=== PATIENT | female | born 1980 | race Caucasian/White ===

== ENCOUNTER 2021-05-02 07:21 | Outpatient (REF) | payer OTHER, SELFPAY ==
--- NOTE | ~2021-05-02 | XR_ITS ---
EXAMINATION: XR BOTH KNEES AP STANDING XR RIGHT KNEE, 2 VIEWS CLINICAL INFORMATION: Pain. COMPARISON: None. TECHNIQUE: Standing AP view of both knees and lateral and sunrise views of the right knee. FINDINGS: Right knee: No significant joint space narrowing. No marginal osteophytes. No osseous erosion. No fracture or dislocation. No joint effusion. No abnormal soft tissue calcification. Left knee: No joint space narrowing or marginal osteophytes. No osseous erosion. No fracture or dislocation. No abnormal soft tissue calcification. XR/XR knee standing BI IMPRESSION: Right knee: Unremarkable examination. Left knee: Unremarkable examination.
--- NOTE | ~2021-05-02 | XR_ITS ---
EXAMINATION: XR BOTH KNEES AP STANDING XR RIGHT KNEE, 2 VIEWS CLINICAL INFORMATION: Pain. COMPARISON: None. TECHNIQUE: Standing AP view of both knees and lateral and sunrise views of the right knee. FINDINGS: Right knee: No significant joint space narrowing. No marginal osteophytes. No osseous erosion. No fracture or dislocation. No joint effusion. No abnormal soft tissue calcification. Left knee: No joint space narrowing or marginal osteophytes. No osseous erosion. No fracture or dislocation. No abnormal soft tissue calcification. XR/XR knee RT 2V IMPRESSION: Right knee: Unremarkable examination. Left knee: Unremarkable examination.
== END 2021-05-02 07:22 | disposition home or self-care (01) ==
LOC: HO.HOSX 07:21
PROVIDERS: Visit Provider Physician Assistant
DX: M25.561 Pain in right knee (principal); S80.02XA Contusion of left knee, initial encounter
CPT/HCPCS: 73560; 73565; 99202